=== PATIENT | female | born 1960 | race African-American/Black ===

== ENCOUNTER 2019-02-07 09:06 | Day surgery (SDC) | payer BC ==
[~2019-02-07] VITALS: Ht 170.2 cm; Wt 89.4 kg
[~2019-02-07 09:06] MED LIST: ASPI-630 PO; CLON-77 PO; GABA-585 PO; HYDROmorphone 2 MG/ML VIAL IV PRN; IV RINGERS,LACTATED 1000ML 1,000 ML IV SCH; LENA10CA PO; LIDOCAINE 1% PF 2 ML VIAL. ID PRN; MORPHINE SULFATE 2 MG/ML VIAL. IV PRN; MULT-460 PO; ONDANSETRON PF 4 MG/2 ML VIAL. IV PRN; PROCHLORPERAZINE 10 MG/2 ML VIAL. IV PRN; TRAZ-118 PO; [UNRECOGNIZED DRUG - OTHER]; ceFAZolin 2GM PREMIX 2 GM/50 ML BAG IV ONE; fentaNYL PF VIAL 100 MCG/2 ML VIAL IV PRN
[2019-02-07] MEDS ORDERED: PROPOFOL 20 ML IV ONE (09:28)
[2019-02-07] MEDS ORDERED: DEXAMETHASONE SOD PHOS 4 MG/ML VIAL ONE (09:28)
[2019-02-07] MEDS ORDERED: ONDANSETRON PF 4 MG/2 ML VIAL. ONE (09:28)
[2019-02-07] MEDS ORDERED: fentaNYL PF VIAL 100 MCG/2 ML VIAL ONE ×2 (09:28→11:37)
[2019-02-07] MEDS ORDERED: LIDOCAINE 2% PF 5 ML VIAL. ONE (09:28)
[2019-02-07] MEDS ORDERED: MIDAZOLAM HCL/PF 2 MG/2 ML VIAL. ONE (09:28)
[2019-02-07] MEDS ORDERED: GABA300C18 PO (09:45)
[2019-02-07 09:55] LABS: BASO % 1 % (0-3); EOS # 0.1 x10^3/uL (0.0-0.7); EOS % 5 % (0-3); HEMATOCRIT 38.2 % (36.0-47.0); HEMOGLOBIN 13.3 g/dL (12.0-15.5); LYMPH # 1.1 x10^3/uL (1.0-4.8); LYMPH % 33 % (24-48); MEAN CORPUSCULAR HEMOGLOBIN 30 pg (25-35); MEAN CORPUSCULAR HGB CONC 35 g/dL (31-37); MEAN CORPUSCULAR VOLUME 86 fL (79-100); MONO # 0.3 x10^3/uL (0.0-1.1); MONO % 9 % (0-9); NEUT # 1.7 x10^3/uL (1.8-7.7); NEUT % 53 % (31-73); PLATELET COUNT 225 x10^3/uL (140-400); RED BLOOD COUNT 4.43 x10^6/uL (3.50-5.40); RED CELL DISTRIBUTION WIDTH 14.5 % (11.5-14.5); WHITE BLOOD COUNT 3.2 x10^3/uL (4.0-11.0)
--- NOTE | 2019-02-07 09:59 | EKG ---
[facility] [address] [place] [address] Test Date: 2019-02-07 Test Time: 10:03:03 Pat Name: ELICEO MIRANDA Department: Room: Gender: F Tyre Fitter: TV : 1960 Requested By: IRVIN WHALEY Order Number: [id number] Reading MD: Rudi Pereyra MD Measurements Intervals [place] Rate: 83 P: 34 SD: 150 QRS: -2 QRSD: 86 T: 24 QT: 368 QTc: 433 Interpretive Statements SINUS RHYTHM Electronically Signed On 02-08-2019 16:03:03 CDT by Rudi Pereyra MD
[2019-02-07] MEDS ORDERED: KETOROLAC 30 MG/ML INJ FOR OR. INJ ONE (10:09)
[2019-02-07] MEDS ORDERED: ACYC400T PO (10:11)
[2019-02-07] MEDS ORDERED: CHOL4POW PO (10:12)
[2019-02-07] MEDS ORDERED: DEXA4TAB PO (10:13)
[2019-02-07] MEDS ORDERED: DULO60CA6 PO (10:14)
[2019-02-07] MEDS ORDERED: ONDA4TAB11 PO (10:15)
[2019-02-07] MEDS ORDERED: LIDO700A21 TP (10:15)
[2019-02-07] MEDS ORDERED: SEVOFLURANE 31 TO 60 MINUTES. IH ONE (10:39)
--- NOTE | 2019-02-07 11:22 | PDOC ---
BRIEF OPERATIVE NOTE Date: Feb 07, 2019 Pre-Op Diagnosis PMB Post-Op Diagnosis SAme + Endometrial Fibroid Procedure Performed Op [facility] with resection myomectomy Surgeon Dr. Ingram Anesthesia Type: General Blood Loss 25 ml Specimens Obtained fibroid Findings homogenous endometrial cavity with endometrial fibroid Complications none Operative Note see dictation IRVIN INGRAM Jr, MD Feb 07, 2019 11:22
--- NOTE | 2019-02-07 11:23 | DISCH ---
DISCHARGE INSTRUCTIONS Condition on Discharge Condition on Discharge: Stable Activity After Discharge Activity Instructions for Disc: Activity as tolerated Lifting Instructions after Dis: No heavy lifting Driving Instructions after Dis: Do not drive today Diet after Discharge Diet after Discharge: Regular Contacting the DRKely after DC Call your doctor for: Concerns you may have Follow-Up Follow up with: Dr. Ingram in 1 week IRVIN INGRAM Jr, MD Feb 07, 2019 11:23
[2019-02-07] MEDS: fentaNYL PF VIAL 100 MCG/2 ML VIAL IV PRN ×2 (11:40→12:00)
[2019-02-07] MEDS ORDERED: PROCHLORPERAZINE 10 MG/2 ML VIAL. ONE (11:44)
[2019-02-07] MEDS ORDERED: IBUP-1060 PO (12:08)
[2019-02-07] MEDS ORDERED: IBUPROFEN 400 MG TABLET. PO ONE (12:30)
[2019-02-07] MEDS ORDERED: IBUPROFEN 200 MG TABLET. PO ONE ×2 (12:30→12:45)
[2019-02-07 12:55] VITALS: BP 142/81
--- NOTE | 2019-02-07 15:03 | OP ---
DATE OF SURGERY: 02/07/2019 PREOPERATIVE DIAGNOSIS: Postmenopausal bleeding. POSTOPERATIVE DIAGNOSES: Postmenopausal bleeding plus endometrial fibroid. PROCEDURE: Operative hysteroscopy with resection and myomectomy. SURGEON: Irvin Ingarm MD. ANESTHESIA: GETA. ESTIMATED BLOOD LOSS: 25 mL. COMPLICATIONS: None. FINDINGS: Homogenous endometrial cavity with endometrial fibroid. SUMMARY: A 58-year-old female with postmenopausal bleeding, who was counseled on risks, benefits and expectations of operative hysteroscopy. The patient voiced a clear understanding to proceed. DESCRIPTION OF PROCEDURE: The patient was taken to surgery suite and placed in dorsal lithotomy position. She was prepped with Betadine solution and draped in a sterile fashion. After adequate anesthesia, weighted speculum and curved Finesse placed vaginally. Anterior lip of the cervix grasped with a single-tooth tenaculum. Cervix was dilated with Hegar dilators up to size 6. The TruClear hysteroscope was then positioned. The endometrial cavity was homogenous with the exception of a large intracavitary fibroid, which was about 3-4 cm size. The larger TruClear scope was then placed and the fibroid was then shaved down to about 50-75% with myomectomy; however, it appeared to be more calcified internally. The procedure was then stopped. The TruClear was then removed. Single-tooth tenaculum and weighted speculum were removed. The patient tolerated the procedure well and was taken to recovery room in stable condition. Sponge and needle count correct x 3. IRVIN INGRAM MD DR: ANTHONY/lillie JOB#: [id number] / [id number]
--- NOTE | 2019-02-11 08:06 | PATHOLOGY ---
[facility] Accession Number: [id number] . 01 Material submitted: . endometrium - ENDOMETRIAL FIBROID . 01 Clinical history: . Pre-OP DX: PMB-endometrial polyp Post-OP DX: Deferred . 02 Diagnosis: Segments of endometrial and myometrial tissue, operative hysteroscopy with myomectomy: - Submucosal leiomyoma. - Focally attenuated and slightly disordered proliferative endometrium. (JPM:qa automation architect; 02/08/2019) MBR/02/08/2019 . 02 Comment: The entire specimen is submitted for histologic evaluation. Microscopic sections primary reveal multiple segments of a leiomyoma. These segments show no significant cellular atypia, necrosis, or significant mitotic activity. Several of the segments have attached attenuated and focally slightly disordered proliferative endometrium. There is no evidence of malignancy. (JPM:qa automation architect; 02/08/2019) . 02 Electronically signed: . Kian Jarrell MD, Pathologist NPI- [id number] . 01 Gross description: . Received in formalin labeled "Anny Malone, endometrial fibroid," are multiple segments of layton soft tissue measuring 4.0 x 4.5 x 1.1 cm in aggregate dimensions. The specimen is filtered and entirely submitted in cassette A1 through A7. (TSD; 02/07/2019) TOB/TOB . 02 Pathologist provided ICD-10: D25.0, N85.9 . 02 CPT . 008500 Specimen Comment: A courtesy copy of this report has been sent to Specimen Comment: [phone]. Specimen Comment: Report sent to Performed at: [address], [place], [place] [id number] MD Kilo Maxwell MD Phone: [phone] Performed at: 02 [facility] [address] [place] [id number] MD Kian Jarrell MD Phone: [phone]
== END 2019-02-07 14:00 | disposition home or self-care (01) ==
LOC: SURG 09:06
PROVIDERS: ATTEND Obstetrics & Gynecology
DX: D25.0 Submucous leiomyoma of uterus (principal); N95.0 Postmenopausal bleeding
CPT/HCPCS: 36415; 58561; 85025; 93005; A7015; J0780; J1100; J1885; J2001; J2250; J2405; J2704; J3010; 88305; J0696

== ENCOUNTER 2019-04-25 05:46 | Observation (INO) | payer BC ==
[2019-04-25] VITALS (7 sets, daily range): BP systolic 109–129; BP diastolic 72–82
[~2019-04-25] VITALS: Ht 170.2 cm; Wt 86.2 kg
[~2019-04-25 05:46] MED LIST changes: +ACYC400T PO; +CHOL4POW PO; +DEXA4TAB PO; +DULO60CA6 PO; +GABA300C18 PO; -HYDROmorphone 2 MG/ML VIAL IV PRN; +IBUP-1060 PO; -IV RINGERS,LACTATED 1000ML 1,000 ML IV SCH; +LIDO700A21 TP; -LIDOCAINE 1% PF 2 ML VIAL. ID PRN; -MORPHINE SULFATE 2 MG/ML VIAL. IV PRN; +ONDA4TAB11 PO; -ONDANSETRON PF 4 MG/2 ML VIAL. IV PRN; -PROCHLORPERAZINE 10 MG/2 ML VIAL. IV PRN; -ceFAZolin 2GM PREMIX 2 GM/50 ML BAG IV ONE; -fentaNYL PF VIAL 100 MCG/2 ML VIAL IV PRN
[2019-04-25] MEDS: IV RINGERS,LACTATED 1000ML 1,000 ML IV SCH ×2 (06:56→10:57)
[2019-04-25] MEDS ORDERED: MORPHINE SULFATE 2 MG/ML VIAL. IV PRN (07:00)
[2019-04-25] MEDS ORDERED: ONDANSETRON PF 4 MG/2 ML VIAL. IV PRN ×2 (07:00→10:45)
[2019-04-25] MEDS ORDERED: HYDROmorphone 2 MG/ML VIAL IV PRN (07:00)
[2019-04-25] MEDS ORDERED: LIDOCAINE 1% PF 2 ML VIAL. ID PRN (07:00)
[2019-04-25] MEDS ORDERED: PROCHLORPERAZINE 10 MG/2 ML VIAL. IV PRN ×2 (07:00→10:45)
[2019-04-25] MEDS ORDERED: fentaNYL PF VIAL 100 MCG/2 ML VIAL IV PRN (07:00)
[2019-04-25] MEDS ORDERED: PROPOFOL 20 ML IV ONE (07:06)
[2019-04-25] MEDS ORDERED: LIDOCAINE 2% PF 5 ML VIAL. ONE (07:06)
[2019-04-25] MEDS ORDERED: FAMOTIDINE 20 MG/2 ML VIAL ONE (07:06)
[2019-04-25] MEDS ORDERED: ONDANSETRON PF 4 MG/2 ML VIAL. ONE (07:06)
[2019-04-25] MEDS ORDERED: MIDAZOLAM HCL/PF 2 MG/2 ML VIAL. ONE (07:07)
[2019-04-25] MEDS ORDERED: ROCURONIUM 50 MG/5 ML VIAL. ONE (07:07)
[2019-04-25] MEDS ORDERED: KETOROLAC 30 MG/ML VIAL. ONE (07:07)
[2019-04-25] MEDS ORDERED: DEXAMETHASONE SOD PHOS 4 MG/ML VIAL ONE ×2 (07:07)
[2019-04-25] MEDS ORDERED: fentaNYL PF VIAL 100 MCG/2 ML VIAL ONE (07:07)
[2019-04-25] MEDS ORDERED: KETAMINE HCL IN NACL, ISO-OSM 50 MG/5 ML SYRINGE ONE (07:07)
[2019-04-25] MEDS ORDERED: BUPIVACAINE-EPI 0.25%-1:200000 MPF 30 ML VIAL. INJ ONE (08:00)
[2019-04-25] MEDS ORDERED: ceFAZolin 1GM IVPB FOR OMNI 100 ML IV ONE (09:11)
[2019-04-25] MEDS ORDERED: ESTROGENS, CONJ VAGINAL CREAM 30GM TUBE. ONE (09:16)
[2019-04-25] MEDS ORDERED: INDIGOTINDISULFONATE SODIUM 40 MG/5 ML AMPUL. ONE (09:17)
[2019-04-25] MEDS ORDERED: LIDOCAINE 1%/EPI 1:100,000 20 ML VIAL. ONE (09:17)
[2019-04-25] MEDS ORDERED: SURGICEL HEMOSTAT 4X8 EACH. ONE (09:17)
[2019-04-25] MEDS ORDERED: GLYCOPYRROLATE 1 MG/5 ML VIAL. ONE (10:18)
[2019-04-25] MEDS ORDERED: NEOSTIGMINE METHYLSULFATE 5 MG/5 ML SYRINGE. ONE (10:18)
[2019-04-25] MEDS ORDERED: DESFLURANE 61 TO 120 MINUTES IH ONE (10:18)
--- NOTE | 2019-04-25 10:31 | PDOC ---
BRIEF OPERATIVE NOTE Date: Apr 25, 2019 Pre-Op Diagnosis 1. Fibroids 2. PMB Post-Op Diagnosis Same Procedure Performed LAVH & BSO Surgeon Dr. Ingram Telephone Quotation Clerk Card Feeder Celesse Anesthesia Type: General Blood Loss 25 ml Specimens Obtained cervix, uterus, amie. fallopian tubes and ovaries Findings enlarged, fibroid uterus; nml fallopian tubes and ovaries amie. Complications none Operative Note see dictation IRVIN INGRAM Jr, MD Apr 25, 2019 10:31
[2019-04-25] MEDS ORDERED: 0.9 % SODIUM CHLORIDE 10 ML DISP.SYRIN. IV PRN (10:45)
[2019-04-25] MEDS ORDERED: DEXTROSE 50% 25 GM / 50ML DISP.SYRIN. IV PRN (10:45)
[2019-04-25] MEDS ORDERED: diphenhydrAMINE 50 MG/ML VIAL IV PRN (10:45)
[2019-04-25] MEDS ORDERED: CALCIUM CARBONATE 500 MG TAB.CHEW PO PRN (10:45)
[2019-04-25] MEDS ORDERED: diphenhydrAMINE HCL 25 MG CAPSULE PO PRN (10:45)
[2019-04-25] MEDS ORDERED: SIMETHICONE 80 MG TAB.CHEW PO PRN (10:45)
[2019-04-25] MEDS ORDERED: ZOLPIDEM 5 MG TABLET. PO PRN (10:45)
[2019-04-25] MEDS: fentaNYL PF VIAL 100 MCG/2 ML VIAL IV PRN ×2 (10:59→11:56)
--- NOTE | 2019-04-25 11:46 | OP ---
DATE OF SURGERY: 04/25/2019 PREOPERATIVE DIAGNOSES: 1. Fibroids. 2. Postmenopausal bleeding. POSTOPERATIVE DIAGNOSES: 1. Fibroids. 2. Postmenopausal bleeding. PROCEDURE: LAVH, BSO. SURGEON: Irvin Ingram MD TEXTILE MACHINERY INSTRUCTOR: Ledy Rivera. ANESTHESIA: GETA. ESTIMATED BLOOD LOSS: 25 mL. COMPLICATIONS: None. FINDINGS: Enlarged fibroid uterus, normal fallopian tubes and ovaries bilaterally. SUMMARY: A 58-year-old female who had postmenopausal bleeding and known fibroid uterus, counseled on the risks, benefits and expectations of LAVH, BSO and voiced clear understanding to proceed. DESCRIPTION OF PROCEDURE: The patient was taken to surgery suite and placed in dorsal lithotomy position. She was prepped with Betadine solution for vaginal prep and ChloraPrep for abdominal prep. After adequate anesthesia, bivalve speculum was placed vaginally. Anterior lip of the cervix grasped with a single tooth tenaculum. The Valtchev uterine manipulator was then placed. The bivalve speculum was removed. Attention was now placed on abdomen. Small transverse skin incision was made just below the umbilicus with a scalpel. The Veress needle was placed through the infraumbilical incision site. The abdomen was allowed to insufflate up to 1-1/2 liters CO2 gas. The Veress needle was then removed, 5 mm trocar was placed. Scope was positioned. Uterus was enlarged with multiple fibroids. The fallopian tubes and ovaries appeared normal bilaterally. Two additional incisions sites were located in the left lower quadrant with a scalpel in which 5 mm trocars were placed. The nonlocking graspers and EnSeal device was utilized to coagulate and dissect the right infundibulopelvic ligament, some of the right adnexa from the right pelvic sidewall, including the right broad ligament down to and including the right uterine artery. Same process took place on the left adnexa. Bladder flap was created with the aid of EnSeal device and blunt dissection. We then proceeded vaginally. Weighted speculum and curved Sharon placed vaginally. The Valtchev uterine manipulator and single tooth tenaculum were removed. Gennaro clamps were placed on the anterior and posterior lip of the cervix. The cervix was injected with 1% lidocaine with epinephrine in circumferential manner. Bovie cautery was utilized to circumscribe the cervix. We were in the anterior and posterior cul-de-sac bluntly, long weighted speculum was placed. The uterosacral ligaments were clamped bilaterally, cut, and suture ligated. The cervix, uterus, bilateral fallopian tubes and ovaries were then removed in their entirety. A modified Hurd's culdoplasty was performed incorporating the uterosacral ligaments bilaterally. The remainder of the vaginal cuff was reapproximated using 2-0 Vicryl suture in vcxbio-se-sxcio manner. Premarin-soaked vaginal packing was placed. Attention was once again placed on the abdomen. The abdomen was allowed to insufflate up with CO2 gas up to 1-1/2 liters. The scope was positioned. The vaginal cuff was visualized. The pedicles were all visualized and hemostatic. Suction irrigation was utilized to verify good hemostasis. A small amount of normal saline was left in posterior cul-de-sac. The trocars were then removed under direct visualization. The abdomen was allowed to deflate as much as possible along with mechanical manipulation. The three skin incisions were reapproximated using 4-0 Vicryl suture in subcuticular manner. A 0.25% Marcaine with epinephrine was injected at each incision site. The patient tolerated the procedure well and was taken to recovery room in stable condition. Sponge and needle count correct x 3. IRVIN INGRAM MD DR: ANTHONY/lillie JOB#: [id number] / [id number]
[2019-04-25] MEDS: GABAPENTIN 300 MG CAPSULE. PO SCH ×2 (14:30→21:06)
[2019-04-25] MEDS: KETOROLAC 30 MG/ML VIAL. IV PRN ×2 (14:30→21:13)
[2019-04-25] MEDS: oxyCODONE/APAP 5/325 1 TAB TABLET PO PRN ×2 (17:50→22:56)
[2019-04-26] MEDS: GABAPENTIN 300 MG CAPSULE. PO SCH ×2 (05:23→12:52)
[2019-04-26] MEDS: KETOROLAC 30 MG/ML VIAL. IV PRN (05:24)
[2019-04-26 06:10] VITALS: BP 124/80
[2019-04-26 07:42] LABS: BASO % 0 % (0-3); EOS # 0.1 x10^3/uL (0.0-0.7); EOS % 1 % (0-3); HEMATOCRIT 37.3 % (36.0-47.0); HEMOGLOBIN 12.7 g/dL (12.0-15.5); LYMPH # 1.7 x10^3/uL (1.0-4.8); LYMPH % 19 % (24-48); MEAN CORPUSCULAR HEMOGLOBIN 29 pg (25-35); MEAN CORPUSCULAR HGB CONC 34 g/dL (31-37); MEAN CORPUSCULAR VOLUME 85 fL (79-100); MONO # 0.7 x10^3/uL (0.0-1.1); MONO % 7 % (0-9); NEUT # 6.6 x10^3/uL (1.8-7.7); NEUT % 72 % (31-73); PLATELET COUNT 257 x10^3/uL (140-400); RED BLOOD COUNT 4.38 x10^6/uL (3.50-5.40); RED CELL DISTRIBUTION WIDTH 14.7 % (11.5-14.5); WHITE BLOOD COUNT 9.1 x10^3/uL (4.0-11.0)
[2019-04-26] MEDS: oxyCODONE/APAP 5/325 1 TAB TABLET PO PRN ×2 (08:48→12:53)
[2019-04-26] MEDS ORDERED: HEPARIN PF 500 UNIT/5 ML DISP.SYRIN. IVP SCH (09:00)
[2019-04-26 11:00] VITALS: BP 134/88
--- NOTE | 2019-04-26 14:57 | PDOC ---
SURGICAL PROGRESS NOTE Subjective Pt. feeling well. Pain controlled. Pt. ambulating and voiding without difficulty. Vital Signs Vital Signs Date Time Temp Pulse Resp B/P (MAP) Pulse Ox O2 Delivery O2 Flow Rate FiO2 04/26/19 12:53 18 Room Air 04/26/19 11:00 98.2 94 134/88 (103) 97 98.2 04/25/19 12:30 2.0 I&O Intake and Output 04/26/19 07:00 Intake Total 3400 ml Output Total 4000 ml Balance -600 ml Intake Oral 1800 ml IV Total 1600 ml Output Urine Total 3975 ml Estimated Blood Loss 25 ml PATIENT HAS A GERARDO: No General: Alert, Oriented X3, Cooperative HEENT: Atraumatic Lungs: Clear to auscultation Heart: Regular rate Abdomen: Normal bowel sounds, Soft Extremities: No edema Psych/Mental Status: Mental status NL Labs Laboratory Tests Test 04/26/19 06:55 White Blood Count 9.1 x10^3/uL (4.0-11.0) Red Blood Count 4.38 x10^6/uL (3.50-5.40) Hemoglobin 12.7 g/dL (12.0-15.5) Hematocrit 37.3 % (36.0-47.0) Mean Corpuscular Volume 85 fL (79-100) Mean Corpuscular Hemoglobin 29 pg (25-35) Mean Corpuscular Hemoglobin Concent 34 g/dL (31-37) Red Cell Distribution Width 14.7 % (11.5-14.5) Platelet Count 257 x10^3/uL (140-400) Neutrophils (%) (Auto) 72 % (31-73) Lymphocytes (%) (Auto) 19 % (24-48) Monocytes (%) (Auto) 7 % (0-9) Eosinophils (%) (Auto) 1 % (0-3) Basophils (%) (Auto) 0 % (0-3) Neutrophils # (Auto) 6.6 x10^3/uL (1.8-7.7) Lymphocytes # (Auto) 1.7 x10^3/uL (1.0-4.8) Monocytes # (Auto) 0.7 x10^3/uL (0.0-1.1) Eosinophils # (Auto) 0.1 x10^3/uL (0.0-0.7) Basophils # (Auto) 0.0 x10^3/uL (0.0-0.2) Laboratory Tests Test 04/26/19 06:55 White Blood Count 9.1 x10^3/uL (4.0-11.0) Red Blood Count 4.38 x10^6/uL (3.50-5.40) Hemoglobin 12.7 g/dL (12.0-15.5) Hematocrit 37.3 % (36.0-47.0) Mean Corpuscular Volume 85 fL (79-100) Mean Corpuscular Hemoglobin 29 pg (25-35) Mean Corpuscular Hemoglobin Concent 34 g/dL (31-37) Red Cell Distribution Width 14.7 % (11.5-14.5) Platelet Count 257 x10^3/uL (140-400) Neutrophils (%) (Auto) 72 % (31-73) Lymphocytes (%) (Auto) 19 % (24-48) Monocytes (%) (Auto) 7 % (0-9) Eosinophils (%) (Auto) 1 % (0-3) Basophils (%) (Auto) 0 % (0-3) Neutrophils # (Auto) 6.6 x10^3/uL (1.8-7.7) Lymphocytes # (Auto) 1.7 x10^3/uL (1.0-4.8) Monocytes # (Auto) 0.7 x10^3/uL (0.0-1.1) Eosinophils # (Auto) 0.1 x10^3/uL (0.0-0.7) Basophils # (Auto) 0.0 x10^3/uL (0.0-0.2) Assessment/Plan A: POD#1 s/p LAVH & BSO P: D/c home. IRVIN WHALEY Jr, MD Apr 26, 2019 14:57
[2019-04-26] MEDS ORDERED: OXYC1TAB15 PO (15:02)
[2019-04-26] MEDS ORDERED: DOCU-109 PO (15:02)
[2019-04-26] MEDS ORDERED: IBUP-1060 PO (15:02)
--- NOTE | 2019-04-26 15:02 | DISCH ---
DISCHARGE INSTRUCTIONS Condition on Discharge Condition on Discharge: Stable Activity After Discharge Activity Instructions for Disc: Activity as tolerated Lifting Instructions after Dis: No heavy lifting Driving Instructions after Dis: Do not drive today, No driving for 2 weeks Diet after Discharge Diet after Discharge: Regular Contacting the after DC Call your doctor for: Concerns you may have Follow-Up Follow up with: Dr. Ingram in 2 weeks IRVIN INGRAM Jr, MD Apr 26, 2019 15:02
--- NOTE | 2019-04-26 22:06 | PATHOLOGY ---
[facility] Accession Number: [id number] . 01 Material submitted: . uterus - CERVIX, UTERUS, BILATERAL OVARIES AND FALLOPIAN TUBES. Modifiers: bilateral . 01 Clinical history: . uterine fibroid . 02 Diagnosis: "Cervix, uterus, bilateral ovaries and fallopian tubes", hysterectomy and bilateral salpingo-oophorectomy: - Cervix with mild chronic cervicitis. - Endometrium with weakly proliferative to inactive pattern. - Myometrium with adenomyosis and intramural/submucosal leiomyomata, largest measuring 3.0 cm grossly. - Fallopian tubes, bilateral, with minimal histologic alterations. - Ovary, right, with small benign serous cystadenoma. - Ovary, left, with corpora albicantia. (CLW/db; 04/26/2019) LBQ 04/26/2019 1536 Local . 02 Electronically signed: . Becky Vela MD, Pathologist NPI- [id number] . 01 Gross description: . The specimen is received in formalin, labeled "Faisal, Anny, cervix, uterus, bilateral ovaries and fallopian tubes" and consists of a distorted 61 g uterus with attached cervix measuring 8.5 x 4.6 x 3.4 cm. Attached are the bilateral tubo-ovarian complexes. The right weighs 7 g and consists of a fimbriated fallopian tube measuring 5.3 cm in length and 0.4 cm in diameter which is attached to a 3.3 x 1.4 x 1.0 cm ovary. The left tubo-ovarian complex consists of a fimbriated fallopian tube measuring 5.5 cm in length and 0.3 cm in diameter attached to a 3.0 x 1.4 x 0.6 cm ovary. The uterine serosa is pink-layton and smooth with the distortion due to a subserosal nodule measuring 2.5 x 2.5 cm. The 0.8 cm ovoid cervical os is surrounded by pink-layton glistening mucosa. It is bivalved revealing a smooth pink-layton endocervical canal measuring 3.3 cm in length. The endometrial cavity is roughly triangular measuring 4.0 cm in length and 3.0 cm in width lined by an attenuated pink-red endometrium measuring less than 0.1 cm. Filling the endometrial cavity is a submucosal fibroid measuring 3.0 x 3.0 cm. The myometrium is pink-layton measuring up to 1.4 cm with no additional masses or lesions. Both previously described nodules show homogeneous white whorled cut surfaces without hemorrhage, necrosis, or calcifications. . Both right and left fallopian tubes are pink, smooth, and shiny with sectioning revealing central lumens. The right ovary is pink-layton and partially cerebriform with sectioning revealing a subcortical cyst, uniloculated containing clear fluid measuring 0.8 cm. The left ovary is pink-layton and smooth with sectioning revealing a few corpora albicantia. Coin Rolling Machine Operator sections are submitted as follows: . A1: Anterior cervix A2: Posterior cervix A3: Anterior endomyometrium A4: Posterior endomyometrium A5-A6: Submucosal and subserosal nodules A7: Right fallopian tube A8: Right ovary A9: Left fallopian tube A10: Left ovary (SDY; 04/25/2019) /SYU 04/26/2019 1537 Local . 02 Pathologist provided ICD-10: N72, N80.0, D25.0, D25.1, D27.0 . 02 CPT . 522075, [id number] Specimen Comment: A courtesy copy of this report has been sent to [phone] Specimen Comment: Report sent to Performed at: 01 [facility] [address], [place], [place] [id number] MD Kilo Maxwell MD Phone: [phone] Performed at: 02 [facility] [address], [place] [id number] MD Kian Jarrell MD Phone: [phone]
== END 2019-04-26 16:08 | disposition home or self-care (01) ==
LOC: SURG 05:46 → 3 NORTH 13:06
PROVIDERS: ADMIT Obstetrics & Gynecology; ATTEND Obstetrics & Gynecology
DX: D25.9 Leiomyoma of uterus, unspecified (principal); N95.0 Postmenopausal bleeding
CPT/HCPCS: 36415; 58552; 85025; 86850; 86900; 86901; 88307; 96374; 96375; 96376; A7015; G0378; G0379; J0690; J0780; J1100; J1885; J2001; J2250; J2405; J2704; J2710; J3010; J3490; J7030